=== PATIENT | male | born 1980 | race Caucasian/White ===

== ENCOUNTER 2018-07-15 14:35 | Observation (INO) | payer OTHER ==
[2018-07-15] MEDS ORDERED: SODIUM CHLORIDE 0.9% 1,000 ML IV STA ×2 (15:07)
[2018-07-15] MEDS ORDERED: IPRATROPIUM-ALBUTEROL 3 ML NEB INHALATION STA ×2 (15:07→18:41)
[2018-07-15] MEDS ORDERED: AZITHROMYCIN 500 MG in SODIUM CHLORIDE 0.9% 250 ML IVPB STA (15:07)
--- NOTE | 2018-07-15 15:08 | ED ---
SOB HPI - General Chief Complaint: Shortness of Breath Stated Complaint: Productive cough Time Seen by Provider: 07/15/18 15:08 Source: patient Mode of arrival: ambulatory Limitations: no limitations - History of Present Illness MD Complaint: shortness of breath, cough, pain with inspiration -: days(s) Radiation: back Severity: moderate Severity scale (1-10): 4 Quality: dull, aching Consistency: intermittent Improves With: rest Worsens With: exertion, movement Known History Of: asthma Context: recent URI Associated Symptoms: denies other symptoms - Related Data Home Medications Medication Instructions Recorded Confirmed Guaifenesin/Dextromethorphan 20 ml PO BID 07/15/18 07/15/18 [guaiFENesin DM] Allergies Allergy/AdvReac Type Severity Reaction Status Date / Time WALTER Inhibitors Allergy Swelling Verified 07/15/18 16:10 Review of Systems ROS Statement: Those systems with pertinent positive or pertinent negative responses have been documented in the HPI. ROS Other: All systems not noted in ROS Statement are negative. Past Medical History Additional Past Medical History / Comment(s): bronchitis History of Any Multi-Drug Resistant Organisms: None Reported Additional Past Surgical History / Comment(s): hemrrhoid Past Psychological History: No Psychological Hx Reported Smoking Status: Current every day smoker Past Alcohol Use History: Occasional Past Drug Use History: Marijuana General Exam Limitations: no limitations General appearance: alert, in no apparent distress Head exam: Present: atraumatic, normocephalic, normal inspection Eye exam: Present: normal appearance, PERRL, EOMI. Absent: scleral icterus, conjunctival injection, periorbital swelling ENT exam: Present: normal exam, mucous membranes moist Neck exam: Present: normal inspection. Absent: tenderness, meningismus, lymphadenopathy Respiratory exam: Present: wheezes, accessory muscle use, decreased breath sounds, prolonged expiratory. Absent: respiratory distress, rales, rhonchi, stridor Cardiovascular Exam: Present: regular rate, normal rhythm, normal heart sounds. Absent: systolic murmur, diastolic murmur, rubs, gallop, clicks GI/Abdominal exam: Present: soft, normal bowel sounds. Absent: distended, tenderness, guarding, rebound, rigid Extremities exam: Present: normal inspection, full ROM, normal capillary refill. Absent: tenderness, pedal edema, joint swelling, calf tenderness Back exam: Present: normal inspection Neurological exam: Present: alert, oriented X3, CN II-XII intact Psychiatric exam: Present: normal affect, normal mood Skin exam: Present: warm, dry, intact, normal color. Absent: rash Course Vital Signs 07/15/18 07/15/18 07/15/18 14:58 15:26 15:30 Temperature 98.4 F Pulse Rate 92 100 111 H Respiratory 20 18 18 Rate Blood Pressure 137/95 126/108 O2 Sat by Pulse 92 L 93 L Oximetry 07/15/18 07/15/18 07/15/18 15:37 16:00 16:30 Temperature Pulse Rate 128 H 108 H 101 H Respiratory 20 18 Rate Blood Pressure 134/109 142/87 O2 Sat by Pulse 94 L 93 L Oximetry 07/15/18 07/15/18 18:06 19:15 Temperature Pulse Rate 87 92 Respiratory 18 16 Rate Blood Pressure 140/96 O2 Sat by Pulse 93 L Oximetry - Reevaluation(s) Reevaluation #1: 07/15/18 17:46 Medical record is reviewed Reevaluation #2: 07/15/18 18:46 Patient symptoms are improved but not significantly improved. Still short of breath with mild hypoxia stress with exertion. Medical Decision Making - Medical Decision Making 38 male the ER for evaluation. Patient presenting with fever and flulike symptoms, acute bronchitis. Shortness of breath and elevated diastolic blood pressure. Occasionally hypoxic. Patient be admitted for continued breathing treatments, monitoring of blood pressure - Lab Data Result diagrams: 07/15/18 15:45 07/15/18 15:45 Lab Results 07/15/18 07/15/18 07/15/18 Range/Units 15:45 15:45 15:45 WBC 12.1 H (3.8-10.6) k/uL RBC 5.50 (4.30-5.90) m/uL Hgb 17.6 H (13.0-17.5) gm/dL Hct 52.6 (39.0-53.0) % MCV 95.5 (80.0-100.0) fL MCH 32.0 (25.0-35.0) pg MCHC 33.5 (31.0-37.0) g/dL RDW 12.1 (11.5-15.5) % Plt Count 246 (150-450) k/uL Neutrophils % 76 % Lymphocytes % 15 % Monocytes % 8 % Eosinophils % 0 % Basophils % 0 % Neutrophils # 9.2 H (1.3-7.7) k/uL Lymphocytes # 1.8 (1.0-4.8) k/uL Monocytes # 0.9 (0-1.0) k/uL Eosinophils # 0.0 (0-0.7) k/uL Basophils # 0.0 (0-0.2) k/uL PT (9.0-12.0) sec INR (<1.2) APTT (22.0-30.0) sec Sodium 144 (137-145) mmol/L Potassium 4.2 (3.5-5.1) mmol/L Chloride 104 (98-107) mmol/L Carbon Dioxide 26 (22-30) mmol/L Anion Gap 14 mmol/L BUN 8 L (9-20) mg/dL Creatinine 0.82 (0.66-1.25) mg/dL Est GFR (CKD-EPI)AfAm >90 (>60 ml/min/1.73 sqM) Est GFR (CKD-EPI)NonAf >90 (>60 ml/min/1.73 sqM) Glucose 146 H (74-99) mg/dL Calcium 10.6 H (8.4-10.2) mg/dL Magnesium 2.4 H (1.6-2.3) mg/dL Total Bilirubin 1.3 (0.2-1.3) mg/dL AST 27 (17-59) U/L ALT 57 (21-72) U/L Alkaline Phosphatase 87 (38-126) U/L Troponin I (0.000-0.034) ng/mL NT-Pro-B Natriuret Pep 30 pg/mL Total Protein 9.4 H (6.3-8.2) g/dL Albumin 5.4 H (3.5-5.0) g/dL Influenza Type A RNA (Not Detectd) Influenza Type B (PCR) (Not Detectd) 07/15/18 07/15/18 07/15/18 Range/Units 15:45 15:45 16:03 WBC (3.8-10.6) k/uL RBC (4.30-5.90) m/uL Hgb (13.0-17.5) gm/dL Hct (39.0-53.0) % MCV (80.0-100.0) fL MCH (25.0-35.0) pg MCHC (31.0-37.0) g/dL RDW (11.5-15.5) % Plt Count (150-450) k/uL Neutrophils % % Lymphocytes % % Monocytes % % Eosinophils % % Basophils % % Neutrophils # (1.3-7.7) k/uL Lymphocytes # (1.0-4.8) k/uL Monocytes # (0-1.0) k/uL Eosinophils # (0-0.7) k/uL Basophils # (0-0.2) k/uL PT 10.0 (9.0-12.0) sec INR 0.9 (<1.2) APTT 27.9 (22.0-30.0) sec Sodium (137-145) mmol/L Potassium (3.5-5.1) mmol/L Chloride (98-107) mmol/L Carbon Dioxide (22-30) mmol/L Anion Gap mmol/L BUN (9-20) mg/dL Creatinine (0.66-1.25) mg/dL Est GFR (CKD-EPI)AfAm (>60 ml/min/1.73 sqM) Est GFR (CKD-EPI)NonAf (>60 ml/min/1.73 sqM) Glucose (74-99) mg/dL Calcium (8.4-10.2) mg/dL Magnesium (1.6-2.3) mg/dL Total Bilirubin (0.2-1.3) mg/dL AST (17-59) U/L ALT (21-72) U/L Alkaline Phosphatase (38-126) U/L Troponin I <0.012 (0.000-0.034) ng/mL NT-Pro-B Natriuret Pep pg/mL Total Protein (6.3-8.2) g/dL Albumin (3.5-5.0) g/dL Influenza Type A RNA Not Detected (Not Detectd) Influenza Type B (PCR) Not Detected (Not Detectd) - EKG Data -: EKG Interpreted by Me (EKG shows NSR rate of 100, MO 144, QRS 74, QTc 436) - Radiology Data Radiology results: report reviewed (Chest x-ray is negative for acute disease, CT imaging chest negative for PE), image reviewed Disposition Clinical Impression: Acute bronchitis, Uncontrolled hypertension Disposition: ADMITTED IP TO THIS HOSP Condition: Good Is patient prescribed a controlled substance at d/c from ED?: No
[2018-07-15] MEDS ORDERED: KETOROLAC 30 MG/ML 1 ML VIAL IVP STA (15:51)
[2018-07-15 16:15] LABS: INR 0.9 (<1.2); Partial Thromboplastin Time 27.9 sec (22.0-30.0)
[2018-07-15] MEDS ORDERED: MORPHINE SULFATE 4 MG/ML SYRINGE IVP STA (16:19)
[2018-07-15 16:20] LABS: ALT 57 U/L (21-72); AST 27 U/L (17-59); Albumin 5.4 g/dL (3.5-5.0); Alkaline Phosphatase 87 U/L (38-126); Anion Gap 14 mmol/L; Basophils % (A) 0 %; Blood Urea Nitrogen 8 mg/dL (9-20); Calcium 10.6 mg/dL (8.4-10.2); Carbon Dioxide 26 mmol/L (22-30); Chloride 104 mmol/L (98-107); Eosinophils % (A) 0 %; Glucose 146 mg/dL (74-99); HCT 52.6 % (39.0-53.0); HGB 17.6 gm/dL (13.0-17.5); Lymphocytes # (A) 1.8 k/uL (1.0-4.8); Lymphocytes % (A) 15 %; MCHC 33.5 g/dL (31.0-37.0); MCV 95.5 fL (80.0-100.0); Magnesium 2.4 mg/dL (1.6-2.3); Mean Platelet Volume 7.3; Monocytes # (A) 0.9 k/uL (0-1.0); Monocytes % (A) 8 %; Neutrophils # (A) 9.2 k/uL (1.3-7.7); Neutrophils % (A) 76 %; Platelet Count 246 k/uL (150-450); Potassium 4.2 mmol/L (3.5-5.1); RDW 12.1 % (11.5-15.5); Sodium 144 mmol/L (137-145); Total Bilirubin 1.3 mg/dL (0.2-1.3); Total Protein 9.4 g/dL (6.3-8.2); WBC 12.1 k/uL (3.8-10.6)
--- NOTE | 2018-07-15 16:43 | XR ---
EXAMINATION TYPE: XR chest 2V DATE OF EXAM: 07/15/2018 COMPARISON: NONE HISTORY: Short of breath TECHNIQUE: Frontal and lateral views of the chest are obtained. FINDINGS: Heart and mediastinum are normal. Lungs are clear. Diaphragm is normal. Bony thorax is int act. IMPRESSION: Normal chest
[2018-07-15] MEDS ORDERED: hydrALAZINE HCL 20 MG/ML 1 ML VIAL IVP STA (17:47)
--- NOTE | 2018-07-15 18:24 | CT ---
EXAMINATION TYPE: CT angio chest DATE OF EXAM: 07/15/2018 6:07 PM COMPARISON: None HISTORY: Chest pain and cough. CT DLP: 418.7 mGycm Automated exposure control for dose reduction was used. CONTRAST: CTA scan of the thorax is performed with IV Contrast, patient injected with 76ml mL of Isovue 370, pu lmonary embolism protocol. There are 3-D post processed images.. FINDINGS: The lungs are clear of consolidation. There is no evidence of a pulmonary mass. There is no pleural e ffusion or pneumothorax. Heart size is normal. There is no pericardial effusion. There are no hilar m asses. There is no mediastinal adenopathy. Thoracic aorta appears normal. There is normal contrast opacification of the pulmonary arteries. There are no filling defects. The b fercho thorax appears intact. IMPRESSION: NEGATIVE EXAM. NO EVIDENCE OF PULMONARY EMBOLISM.
[2018-07-15] MEDS ORDERED: methylPREDNISolone SOD SUCCI 125 MG/2 ML VIAL IV STA (18:41)
[2018-07-15] MEDS ORDERED: hydrALAZINE HCL 20 MG/ML 1 ML VIAL IVP PRN (19:44)
[2018-07-15] MEDS: IPRATROPIUM-ALBUTEROL 3 ML NEB INHALATION SCH (19:44)
[2018-07-15] MEDS: MORPHINE SULFATE 4 MG/ML SYRINGE IVP PRN (21:28)
[2018-07-15] MEDS: SODIUM CHLORIDE 0.9% 1,000 ML IV SCH (22:08)
[2018-07-15] MEDS: methylPREDNISolone SOD SUCCI 125 MG/2 ML VIAL IV SCH (23:23)
[2018-07-15 23:44] VITALS: RESP 18
[2018-07-16] MEDS: MORPHINE SULFATE 4 MG/ML SYRINGE IVP PRN ×3 (01:56→10:54)
[2018-07-16] MEDS: SODIUM CHLORIDE 0.9% 1,000 ML IV SCH ×2 (06:17→14:01)
[2018-07-16] MEDS: methylPREDNISolone SOD SUCCI 125 MG/2 ML VIAL IV SCH ×2 (06:36→10:55)
[2018-07-16 06:39] LABS: Glucose,Whole Blood 156 mg/dL (75-99)
[2018-07-16] MEDS: INSULIN ASPART (NovoLOG) 100 UNIT/ML VIAL SQ SCH ×2 (07:56→14:00)
[2018-07-16] MEDS ORDERED: NICOTINE 21MG/24HR PATCH TRANSDERM SCH (09:00)
[2018-07-16] MEDS: IPRATROPIUM-ALBUTEROL 3 ML NEB INHALATION SCH ×2 (09:06→13:53)
[2018-07-16 11:28] VITALS: BP 150/95; PULSE 100; TEMP 97.8
[2018-07-16 11:49] LABS: Glucose,Whole Blood 178 mg/dL (75-99)
--- NOTE | 2018-07-16 21:55 | P.HPIM ---
History of Present Illness H&P Date: 07/16/18 Mr. Espinoza is a 38-year-old male with a past medical history of hypertension coming in the hospital with a chief complaint of cough that has been going on for the past 5-7 days. The patient states that he has been coughing, dry cough for the past 7 days. Patient denies having any fevers chills or rigors. Patient denies having any sick contacts. He states that his cough has been so bad that he started to have headaches and chest soreness because of the cough. He tried [id number] guaifenesin but did not seem to help him a lot. Patient is a current everyday smoker smokes 1 pack/day. Patient denies having any blurry vision, neck stiffness. No chest pain or palpitations. No abdominal pain nausea vomiting or diarrhea. No dysuria or hematuria. Patient denies having any recent travel. No orthopnea or PND or lower extremity swelling. Patient's past medical history is only significant for hypertension but he has been off of all blood pressure pills for the past couple of months as he does not have PCP. Patient was on lisinopril but mentioned that he had cough and so stopped taking it by himself. In the ED patient had a CT of the chest that was negative for any acute pulmonary embolism. He was given Solu-Medrol and breathing treatments and admitted to the observation unit. Currently the patient is lying comfortably in the bed appears to be in no acute distress. He denies having any chest pain or difficulty in breathing. He states that breathing treatment helped him feel better. Review of Systems REVIEW OF SYSTEMS: PSYCH: No anxiety and depression NEURO:No c/o weakness of the extremties, No facial droop, No speech abnormalities. VASCULAR: Peripheral nervous system within the normal limits no edema HEMATOLOGIC: No history of easy bleeding and bruising . No recent infections . RESPIRATORY: As per HPI IMMUNE: No infections INTEGUMENT: no rashes OPHTHALMOLOGIC: No blurry vision and no eye discharge : No dysuria or hematuria CARDIAC: No chest pain , shortness of breath , paroxysmal nocturnal dyspnea MUSCULOSKELETAL : No Aches or pains in the joints or muscles. GI: No abdominal pain, Nausea or vomiting. No constipation or diarrhea. Past Medical History Past Medical History: Hypertension Additional Past Medical History / Comment(s): bronchitis, History of Any Multi-Drug Resistant Organisms: None Reported Additional Past Surgical History / Comment(s): hemrrhoid Past Anesthesia/Blood Transfusion Reactions: No Reported Reaction Past Psychological History: No Psychological Hx Reported Smoking Status: Current every day smoker Past Alcohol Use History: Heavy Additional Past Alcohol Use History / Comment(s): patient reports that he drinks 1 pint of liquor daily. pt states last drink was 3 to 4 days ago Past Drug Use History: Marijuana Additional Drug Use History / Comment(s): daily marijuana use - Past Family History Mother Additional Family Medical History / Comment(s): lung issues Father Family Medical History: No Reported History Sister(s) Family Medical History: No Reported History Brother(s) Family Medical History: No Reported History Daughter(s) Family Medical History: No Reported History Son(s) Family Medical History: No Reported History Medications and Allergies Home Medications Medication Instructions Recorded Confirmed Type Guaifenesin/Dextromethorphan 20 ml PO BID 07/15/18 07/15/18 History [guaiFENesin DM] Azithromycin 250 mg PO DAILY #4 tablet 07/16/18 Rx Hydrochlorothiazide 25 mg PO DAILY #30 tablet 07/16/18 Rx Allergies Allergy/AdvReac Type Severity Reaction Status Date / Time WALTER Inhibitors Allergy Swelling Verified 07/15/18 21:16 Physical Exam Vitals: Vital Signs Temp Pulse Pulse Resp BP BP Pulse Ox 07/16/18 12:00 18 07/16/18 11:27 97.8 F 100 18 150/95 90 L 07/16/18 09:17 94 07/16/18 09:06 94 07/16/18 08:00 18 07/16/18 07:35 98.0 F 94 18 157/101 91 L 07/16/18 04:00 98.7 F 90 18 146/91 92 L 07/16/18 03:52 18 07/15/18 23:43 98.1 F 104 H 18 159/99 91 L 07/15/18 23:41 20 07/15/18 21:32 20 07/15/18 20:00 97.6 F 107 H 20 154/92 91 L 07/15/18 19:40 111 H 20 159/97 93 L 07/15/18 19:15 92 16 07/15/18 19:00 107 H 20 150/104 92 L 07/15/18 18:30 105 H 20 127/100 92 L 07/15/18 18:06 87 18 140/96 93 L 07/15/18 16:30 101 H 18 142/87 93 L 07/15/18 16:00 108 H 134/109 94 L 07/15/18 15:37 128 H 20 07/15/18 15:30 111 H 18 126/108 93 L 07/15/18 15:26 100 18 07/15/18 14:58 98.4 F 92 20 137/95 92 L Intake and Output 07/15/18 07/16/18 07/16/18 22:59 06:59 14:59 Intake Total 960 Balance 960 Intake: Oral 960 Other: Voiding Method Toilet Toilet Toilet # Voids 2 2 GEN. APPEARANCE: alert, in no apparent distress HEAD EXAM: atraumatic, normocephalic, normal inspection EYE EXAM: normal appearance, PERRL, EOMI. Absent: scleral icterus, conjunctival injection, periorbital swelling RESPIRATORY EXAM: normal lung sounds bilaterally. Absent: respiratory distress, wheezes, rales, rhonchi, stridor CARDIOVASCULAR EXAM: regular rate, normal rhythm, normal heart sounds. Absent: systolic murmur, diastolic murmur, rubs, gallop, clicks GI/ABDOMINAL EXAM: soft, normal bowel sounds. Absent: distended, tenderness, guarding, rebound, rigid EXTREMITIES EXAM: normal inspection, full ROM, normal capillary refill. No edema or debora tenderness. NEUROLOGICAL EXAM: alert, oriented X3, No focal deficits PSYCHIATRIC EXAM: normal affect, normal mood SKIN EXAM: warm, dry, intact, normal color. Absent: rash Results CBC & Chem 7: 07/15/18 15:45 07/15/18 15:45 Labs: Abnormal Lab Results - Last 24 Hours (Table) 07/15/18 07/15/18 07/16/18 Range/Units 15:45 15:45 06:37 WBC 12.1 H (3.8-10.6) k/uL Hgb 17.6 H (13.0-17.5) gm/dL Neutrophils # 9.2 H (1.3-7.7) k/uL BUN 8 L (9-20) mg/dL Glucose 146 H (74-99) mg/dL POC Glucose (mg/dL) 156 H (75-99) mg/dL Calcium 10.6 H (8.4-10.2) mg/dL Magnesium 2.4 H (1.6-2.3) mg/dL Total Protein 9.4 H (6.3-8.2) g/dL Albumin 5.4 H (3.5-5.0) g/dL 07/16/18 Range/Units 11:47 WBC (3.8-10.6) k/uL Hgb (13.0-17.5) gm/dL Neutrophils # (1.3-7.7) k/uL BUN (9-20) mg/dL Glucose (74-99) mg/dL POC Glucose (mg/dL) 178 H (75-99) mg/dL Calcium (8.4-10.2) mg/dL Magnesium (1.6-2.3) mg/dL Total Protein (6.3-8.2) g/dL Albumin (3.5-5.0) g/dL Thrombosis Risk Factor Assmnt - Choose All That Apply Any of the Below Risk Factors Present?: Yes Each Factor Represents 1 point: Obesity (BMI >25) Other Risk Factors: No Other congenital or acquired thrombophilia - If yes, enter type in comment: No Thrombosis Risk Factor Assessment Total Risk Factor Score: 1 Thrombosis Risk Factor Assessment Level: Low Risk Assessment and Plan Assessment: ASSESSMENT Acute bronchitis Hypertension-poorly controlled Leukocytosis PLAN : Patient was given a dose of azithromycin and Solu-Medrol in the ED along with breathing treatments. Currently the patient feels much better and almost back to his baseline. Discussed with him that his blood pressure is high due to noncompliance with medication. Patient mentions that he does not have a PCP and so was not taking his medication. Patient is being discharged home in a stable condition with azithromycin and hydrochlorothiazide for his blood pressure. He is advised to follow-up with primary care physician for his blood pressure management.
--- NOTE | 2018-07-16 21:57 | P.DS ---
Providers Date of admission: 07/15/18 18:41 Expected date of discharge: 07/16/18 Attending physician: Javi Moreno Primary care physician: Stated None Hospital Course: Mr. Espinoza is a 38-year-old male with a past medical history of hypertension coming in the hospital with a chief complaint of cough that has been going on for the past 5-7 days. The patient states that he has been coughing, dry cough for the past 7 days. Patient denies having any fevers chills or rigors. Patient denies having any sick contacts. He states that his cough has been so bad that he started to have headaches and chest soreness because of the cough. He tried [id number] guaifenesin but did not seem to help him a lot. Patient is a current everyday smoker smokes 1 pack/day. Patient denies having any blurry vision, neck stiffness. No chest pain or palpitations. No abdominal pain nausea vomiting or diarrhea. No dysuria or hematuria. Patient denies having any recent travel. No orthopnea or PND or lower extremity swelling. Patient's past medical history is only significant for hypertension but he has been off of all blood pressure pills for the past couple of months as he does not have PCP. Patient was on lisinopril but mentioned that he had cough and so stopped taking it by himself. In the ED patient had a CT of the chest that was negative for any acute pulmonary embolism. He was given Solu-Medrol and breathing treatments and admitted to the observation unit. Currently the patient is lying comfortably in the bed appears to be in no acute distress. He denies having any chest pain or difficulty in breathing. He states that breathing treatment helped him feel better. DISCHARGE DIAGNOSIS Acute bronchitis Hypertension-poorly controlled Leukocytosis PLAN : Patient was given a dose of azithromycin and Solu-Medrol in the ED along with breathing treatments. Currently the patient feels much better and almost back to his baseline. Discussed with him that his blood pressure is high due to noncompliance with medication. Patient mentions that he does not have a PCP and so was not taking his medication. Patient is being discharged home in a stable condition with azithromycin and hydrochlorothiazide for his blood pressure. He is advised to follow-up with primary care physician for his blood pressure management. Patient Condition at Discharge: Good Plan - Discharge Summary Discharge Rx Participant: No New Discharge Prescriptions: New Azithromycin 250 mg PO DAILY #4 tablet Hydrochlorothiazide 25 mg PO DAILY #30 tablet Continue Guaifenesin/Dextromethorphan [guaiFENesin DM] 20 ml PO BID Discharge Medication List Guaifenesin/Dextromethorphan [guaiFENesin DM] 20 ml PO BID 07/15/18 [History] Azithromycin 250 mg PO DAILY #4 tablet 07/16/18 [Rx] Hydrochlorothiazide 25 mg PO DAILY #30 tablet 07/16/18 [Rx] Follow up Appointment(s)/Referral(s): None,Stated [Primary Care Provider] - 1-2 days Discharge Disposition: HOME SELF-CARE
== END 2018-07-16 15:32 | disposition home or self-care (01) ==
LOC: EC 14:35 → 1SOBS 18:41
PROVIDERS: ADMIT Hospitalist; ATTEND Hospitalist
DX: J20.9 Acute bronchitis, unspecified (principal); I10 Essential (primary) hypertension; R09.02 Hypoxemia; F17.210 Nicotine dependence, cigarettes, uncomplicated; J45.909 Unspecified asthma, uncomplicated; E66.9 Obesity, unspecified; Z68.27 Body mass index [BMI] 27.0-27.9, adult; T46.4X6A Underdosing of angiotensin-converting-enzyme inhibitors, initial encounter; Z91.14 Patient's other noncompliance with medication regimen; Z79.899 Other long term (current) drug therapy; Z88.8 Allergy status to other drugs, medicaments and biological substances
CPT/HCPCS: 96361 ×3; 96376 ×2; 96365; 96366; 96375; 99285; 36415; 94640 ×2; 93005; 83880; 80053; 83735; 84484; 85025; 85610; 85730; 87040; 87502; 71046; 71275; G0378 ×2; S4990; J2270 ×2; J0360; J2930 ×2; J0456; J1885; Q9967

== ENCOUNTER 2021-03-26 20:08 | Emergency (ER) | payer OTHER ==
[2021-03-26 20:36] VITALS: BP 159/96; PULSE 101; RESP 18; TEMP 97.8
--- NOTE | 2021-03-26 21:37 | ED ---
URI HPI - General Chief Complaint: Upper Respiratory Infection Stated Complaint: Loss of hearing, hot flashes Time Seen by Provider: 03/26/21 20:39 Source: patient Mode of arrival: ambulatory Limitations: no limitations - History of Present Illness Initial Comments: 40-year-old male patient presents to the emergency department today for evaluation of nasal congestion, body aches, chills. States that he has had these symptoms for the last 4 days and is concerned he may have COVID-19. States he is also experiencing fullness and loss of hearing in his right ear for the last 2 months. Denies any pain or drainage from the ear. States he has been doing flonase for the last month which is not helping. He is reporting night sweats, lost of taste, and loss of smell with this. His any known fevers. States he is otherwise healthy. - Related Data Home Medications Medication Instructions Recorded Confirmed Guaifenesin/Dextromethorphan 20 ml PO BID 07/15/18 07/15/18 [guaiFENesin DM] Previous Rx's Medication Instructions Recorded Azithromycin 250 mg PO DAILY #4 tablet 07/16/18 hydroCHLOROthiazide 25 mg PO DAILY #30 tablet 07/16/18 Ibuprofen [Motrin] 600 mg PO Q8HR PRN #30 tab 03/26/21 Ondansetron [Zofran ODT] 4 mg PO Q8HR PRN #10 tab 03/26/21 guaiFENesin-DM 600/30MG [Mucinex 2 each PO Q12HR PRN #20 tab 03/26/21 Dm] Allergies Allergy/AdvReac Type Severity Reaction Status Date / Time WALTER Inhibitors Allergy Swelling Verified 03/26/21 20:36 Review of Systems ROS Statement: Those systems with pertinent positive or pertinent negative responses have been documented in the HPI. ROS Other: All systems not noted in ROS Statement are negative. Past Medical History Past Medical History: Hypertension Additional Past Medical History / Comment(s): bronchitis, History of Any Multi-Drug Resistant Organisms: None Reported Additional Past Surgical History / Comment(s): hemrrhoid Past Anesthesia/Blood Transfusion Reactions: No Reported Reaction Past Psychological History: Depression, PTSD Past Alcohol Use History: Heavy Past Drug Use History: Marijuana - Past Family History Mother Additional Family Medical History / Comment(s): lung issues Father Family Medical History: No Reported History Sister(s) Family Medical History: No Reported History Brother(s) Family Medical History: No Reported History Daughter(s) Family Medical History: No Reported History Son(s) Family Medical History: No Reported History General Exam Limitations: no limitations General appearance: alert, in no apparent distress, other (this this is a well- developed, well-nourished adult male in no acute distress.) Eye exam: Present: normal appearance, PERRL, EOMI. Absent: scleral icterus, conjunctival injection, periorbital swelling ENT exam: Present: normal exam, normal oropharynx, mucous membranes moist Respiratory exam: Present: normal lung sounds bilaterally. Absent: respiratory distress, wheezes, rales, rhonchi, stridor Cardiovascular Exam: Present: regular rate, normal rhythm, normal heart sounds. Absent: systolic murmur, diastolic murmur, rubs, gallop, clicks GI/Abdominal exam: Present: soft, normal bowel sounds. Absent: distended, tenderness, guarding, rebound, rigid Neurological exam: Present: alert, oriented X3, CN II-XII intact Psychiatric exam: Present: normal affect, normal mood Skin exam: Present: warm, dry, intact, normal color. Absent: rash Course Vital Signs 03/26/21 20:31 Temperature 97.8 F Pulse Rate 101 H Respiratory 18 Rate Blood Pressure 159/96 O2 Sat by Pulse 98 Oximetry Procedures - Ear Wax Removal Right Ear Cerumenolytic Used: other (debrox) Ear Canal Irrigated by: other ([employer]) Ear Canal Irrigated With: other (Warm water using syringe/angiocath) Ear Canal(s) Curetted: plastic loops Results: Re-examined: cerumen removed completely TM Visible: TM(s) intact, normal appearance Ear Canal: other (erythema) Patient Tolerated Procedure: well Complications: no problems Medical Decision Making - Medical Decision Making 40-year-old male patient presents to the emergency department today reporting a body aches, chills, and fatigue for the last 4 days. States he has been unable to hear out of his right ear for 2 months. Physical examination did reveal a right-sided cerumen impaction. This was cleared as documented. Has some right canal erythema is given ofloxacin drops for prevention of infection. He did test positive for COVID-19. I did inform him that he met criteria to receive monoclonal antibodies, did discuss risks versus benefits. Patient declined the antibodies. Is given medication for supportive care and symptom management. To be discharged to follow up with his primary care physician for recheck in 1-2 days. Return parameters were discussed in detail. He verbalizes understanding and agrees this plan. My attending is Dr. Cruz. - Lab Data Lab Results 03/26/21 Range/Units 21:17 Coronavirus (PCR) Detected A (Not Detectd) Disposition Clinical Impression: COVID-19, Impacted cerumen, right ear Disposition: HOME SELF-CARE Condition: Good Instructions (If sedation given, give patient instructions): Coronavirus Disease 2019 (COVID-19), Cerumen Impaction (ED) Additional Instructions: Use debrox drops 3-4 drops 2-3 times per week to prevent wax build up. Use ofloxacin drops 5 drops BID for 7 days. Use medications as needed for symptom relief. Increase fluids. Eat even if you have no appetite this will help heal. Follow-up with primary care physician for recheck in 1-2 days. Return for any new, worsening, or concerning symptoms. Prescriptions: Ibuprofen [Motrin] 600 mg PO Q8HR PRN #30 tab PRN Reason: Pain guaiFENesin-DM 600/30MG [Mucinex Dm] 2 each PO Q12HR PRN #20 tab PRN Reason: Cough Ondansetron [Zofran ODT] 4 mg PO Q8HR PRN #10 tab PRN Reason: Nausea Is patient prescribed a controlled substance at d/c from ED?: No Referrals: Ethel Gillis MD [Primary Care Provider] - 1-2 days Time of Disposition: 22:59
[2021-03-26] MEDS ORDERED: CARBAMIDE PEROXIDE 6.5% DROPS 15 ML BTL RIGHT EAR ONE (22:00)
[2021-03-26] MEDS ORDERED: KETOROLAC 30 MG/ML 1 ML VIAL IM STA (22:56)
[2021-03-26] MEDS ORDERED: ACETAMINOPHEN TAB 500 MG TAB PO STA (22:56)
[2021-03-26] MEDS ORDERED: OFLOXACIN 0.3% OPHTH DROPS 5 ML BOTTLE RIGHT EAR ONE (23:00)
== END 2021-03-26 23:25 | disposition home or self-care (01) ==
LOC: EC 20:08
DX: U07.1 COVID-19 (principal); H61.21 Impacted cerumen, right ear; I10 Essential (primary) hypertension; F12.90 Cannabis use, unspecified, uncomplicated; Z79.899 Other long term (current) drug therapy
CPT/HCPCS: 87635; 69209; 99283; 96372; J1885